=== PATIENT | female | born 1995 | race Caucasian/White ===

== ENCOUNTER 2018-11-28 08:56 | Emergency (ER) | payer OTHER ==
[2018-11-28 09:29] LABS: Absolute Lymphocytes (CBC) 1.5 K/uL (0.7-4.9); Absolute Monocytes 0.6 K/uL (0.1-1.3); Absolute Neutrophil 4.8 K/uL (1.8-8.0); Basophils % 0.3 % (0-1.3); Eosinophils % 3.6 % (0-4.4); Hematocrit 39.2 % (36.0-45.0); Lymphocytes % 20.6 % (15.3-44.8); MPV 10.3 fL (7.6-11.3); Monocytes % 7.9 % (3.3-12.3); RBC Red Blood Cell Count 4.48 M/uL (3.86-4.86)
[2018-11-28 09:31] LABS: Urine Blood NEGATIVE (NEG); Urine Glucose NEGATIVE (NEG); Urine Protein NEGATIVE (NEG); Urine Specific Gravity 1.025 (1.005-1.030)
[2018-11-28 10:07] LABS: BUN Blood Urea Nitrogen 10 mg/dL (7-18); Bicarbonate 25 mmol/L (21-32); Glucose Level 104 mg/dL (74-106); HCG, Quantitative 1489 mIU/mL (1-3); Potassium 3.8 mmol/L (3.5-5.1); Sodium Level 140 mmol/L (136-145)
--- NOTE | 2018-11-28 10:23 | RAD REPORT ---
EXAM DESCRIPTION: US - Transvaginal OB - 11/28/2018 9:48 am CLINICAL HISTORY: VAG BLEED PREG , vaginal bleeding. COMPARISON: 10/30/2018 FINDINGS: Transabdominal and transvaginal pelvic ultrasound was performed. A single gestational sac is seen within the uterus. Shape of the sac is irregular. Within the sac is a single pole with crown-rump length of 21 mm, correlating to estimated gestational age of 8 we eks 5 days. Inferiorly located subchorionic bleed is present measuring 12 mm. Despite prolonged sonographic interrogation, embryonic cardiac activity was not visualized. The placenta is not yet developed due to early gestational age. The maternal adnexa and ovaries are within normal limits. Normal Doppler blood flow was demonstrated to both ovaries. Fluid is present in the cervical canal. IMPRESSION: The findings are compatible with embryonic demise.
--- NOTE | 2018-11-28 10:44 | EDPHYS ---
Physician Documentation [facility] Name: Florida Griffith Age: 23 yrs Sex: Female : 1995 Arrival Date: 11/28/2018 Time: 08:58 Bed 6 Private MD: Javier Turpin P ED Physician Francois Ennis HPI: 11/28 09:08 This 23 yrs old Female presents to ER via Ambulatory with complaints of rn Vaginal Bleeding, + Preg <12wks. 09:08 The patient presents to the emergency department with vaginal bleeding, described as rn spotting. The estimated gestational age is 11 weeks. course: care: private OB physician, Leakage of Fluid: none appreciated, Ultrasound: the patient had an ultrasound, Risk/complications: no obvious risks or complications are appreciated. Previous pregnancies: in previous pregnancies patient has had. The patient has not experienced similar symptoms in the past. at 11 weeks with confirmed single IUP reports 2 days of spotting, no abd pain, no longer bleeding, has required rhogam twice before with other pregnancies.. 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 - Social history:: Smoking status: Patient/guardian denies using tobacco. - Ebola Screening: : Patient denies travel to an Ebola-affected area in the 21 days before illness onset. - Family history:: not pertinent. - Hospitalizations: : No recent hospitalization is reported. ROS: 09:08 Constitutional: Negative for fever, chills, and weight loss, Cardiovascular: Negative rn for chest pain, palpitations, and edema, Respiratory: Negative for shortness of breath, cough, wheezing, and pleuritic chest pain, Abdomen/GI: Negative for abdominal pain, nausea, vomiting, diarrhea, and constipation, : Negative for injury, bleeding, discharge, and swelling, MS/Extremity: Negative for injury and deformity, Skin: Negative for injury, rash, and discoloration, Neuro: Negative for headache, weakness, numbness, tingling, and seizure. Exam: 09:13 Constitutional: This is a well developed, well nourished patient who is awake, alert, rn appears anxious Head/Face: Normocephalic, atraumatic. Eyes: Pupils equal round and reactive to light, extra-ocular motions intact. Lids and lashes normal. Conjunctiva and sclera are non-icteric and not injected. Cornea within normal limits. Periorbital areas with no swelling, redness, or edema. ENT: MMM Abdomen/GI: soft, non-tender, no rebound Skin: Warm, dry MS/ Extremity: Pulses equal, no cyanosis. Neuro: Awake and alert, GCS 15, oriented to person, place, time, and situation. Cranial nerves II-XII grossly intact. Motor strength 5/5 in all extremities. Sensory grossly intact. Vital Signs: 09:12 BP 130 / 54; Pulse 84; Resp 18 S; Temp 97.3(TE); Pulse Ox 100% on R/A; Pain 0/10; aa5 10:00 BP 175 / 6; Pulse 65; Resp 17; Pulse Ox 100% on R/A; tw2 11:07 BP 113 / 56; Pulse 73; Resp 17; Pulse Ox 100% on R/A; tw2 MDM: 09:00 Patient medically screened. rn 10:40 Differential diagnosis: Data reviewed: vital signs, nurses notes, lab test result(s), rn radiologic studies, ultrasound, and as a result, I will discharge patient. Counseling: I had a detailed discussion with the patient and/or guardian regarding: the historical points, exam findings, and any diagnostic results supporting the discharge/admit diagnosis, lab results, radiology results, the need for outpatient follow up, to return to the emergency department if symptoms worsen or persist or if there are any questions or concerns that arise at home. 10:40 ED course: COnsulted with Dr. Turpin, regarding demise/missed , rn instructions given to me to tell patient unless something worsens, to arrive at his clinic Sunday morning NPO for likely D\T\C. . 10:43 ED course: Pt given rhogam. . rn 11/28 09:05 Order name: Quantitative Hcg; Complete Time: 10:12 rn 11/28 09:05 Order name: Abo/rh Typing rn 11/28 09:05 Order name: Basic Metabolic Panel; Complete Time: 10:12 rn 11/28 09:05 Order name: CBC with Diff; Complete Time: 10:01 rn 11/28 09:14 Order name: Urine Dipstick--Ancillary (enter results); Complete Time: 10:01 eb 11/28 09:14 Order name: Urine --Ancillary (enter results); Complete Time: 10:01 eb 11/28 09:39 Order name: Pelvis Complete EDMS 11/28 10:25 Order name: Rh Typing EDMS 11/28 10:25 Order name: Antibody Screen EDMS 11/28 10:25 Order name: Fetalscreen EDMS 11/28 10:25 Order name: Cord Rh type EDMS 11/28 10:25 Order name: Rhogam EDMS 11/28 09:05 Order name: Urine Test (obtain specimen); Complete Time: 09:11 rn 11/28 09:05 Order name: IV Saline Lock; Complete Time: 09:49 rn 11/28 09:05 Order name: Labs collected and sent; Complete Time: 09:49 rn 11/28 09:05 Order name: NPO; Complete Time: 09:08 rn 11/28 09:05 Order name: Urine Dipstick-Ancillary (obtain specimen); Complete Time: 09:11 rn 11/28 09:41 Order name: Transvaginal OB; Complete Time: 10:40 EDMS Administered Medications: 12:15 Drug: RhoGAM (Human) 300 mcg Route: IM; Site: right deltoid; aa5 12:40 Follow up: Response: No adverse reaction aa5 Disposition: 11/28/18 10:42 Discharged to Home. Impression: Missed , demise. - Condition is Stable. - Discharge Instructions: Miscarriage. - Medication Reconciliation Form, Thank You Letter, Antibiotic Education, Prescription Opioid Use form. - Follow up: Javier Turpin MD; When: 12/02/2018; Reason: Further diagnostic work-up, Recheck today's complaints, Re-evaluation by your physician. - Problem is new. - Symptoms are unchanged. Signatures: Dispatcher [employer] EDMS Francois Ennis MD MD rn Calderon, Audri, RN RN aa5 Teresita Martin RN RN tw2 Corrections: (The following items were deleted from the chart) 09:07 09:02 PMHx: None; avery Lisa 09: 09:01 Social history: Smoking status: Lisa Keshia 09:08 09:01 Immunization history: Adult Immunizations avery lance 09:13 09:08 Constitutional: Negative for fever, chills, and weight loss, rn rn 09:39 09:06 OB Limited+US.RAD.BRZ ordered. EDMS EDMS 12:42 10:42 11/28/2018 10:42 Discharged to Home. Impression: Missed ; demise. aa5 Condition is Stable. Forms are Medication Reconciliation Form, Thank You Letter, Antibiotic Education, Prescription Opioid Use. Follow up: Javier Turpin; When: 12/02/2018; Reason: Further diagnostic work-up, Recheck today's complaints, Re-evaluation by your physician. Problem is new. Symptoms are unchanged. rn
--- NOTE | 2018-11-28 10:44 | ER ---
Nurse's Notes [facility] Name: Florida Griffith Age: 23 yrs Sex: Female : 1995 Arrival Date: 11/28/2018 Time: 08:58 Bed 6 Private MD: Javier Turpin P Diagnosis: Missed ; demise Presentation: 11/28 09:00 Transition of care: patient was not received from another setting of care. Onset of tw2 symptoms was November 28, 2018. Risk Assessment: Do you want to hurt yourself or someone else? Patient reports no desire to harm self or others. Care prior to arrival: None. 09:00 Method Of Arrival: Ambulatory tw2 09:00 Presenting complaint: Patient states: "I started spotting last night but it stopped aa5 already". pt denies pain. Pt reports being 11 weeks . 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 09:00 Initial Sepsis Screen: Does the patient meet any 2 criteria? No. Patient's initial aa5 sepsis screen is negative. Does the patient have a suspected source of infection? No. Patient's initial sepsis screen is negative. 09:00 Acuity: VICTORIA 3 aa5 Triage Assessment: 09:09 General: Appears in no apparent distress. well groomed, Behavior is calm, cooperative, tw2 appropriate for age. Pain: Denies pain. 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 - Social history:: Smoking status: Patient/guardian denies using tobacco. - Ebola Screening: : Patient denies travel to an Ebola-affected area in the 21 days before illness onset. - Family history:: not pertinent. - Hospitalizations: : No recent hospitalization is reported. Screenin:00 Abuse screen: Denies threats or abuse. Nutritional screening: No deficits noted. tw2 Tuberculosis screening: No symptoms or risk factors identified. Fall Risk None identified. Assessment: 09:05 General: Appears comfortable, Behavior is calm, cooperative. Pain: Denies pain. Neuro: aa5 Level of Consciousness is awake, alert, obeys commands, Oriented to person, place, time, situation. Cardiovascular: Heart tones S1 S2 present Rhythm is regular. Respiratory: Airway is patent Respiratory effort is even, unlabored, Respiratory pattern is regular, symmetrical, Breath sounds are clear bilaterally. GI: Abdomen is round Bowel sounds present X 4 quads. Abd is soft and non tender X 4 quads. : Reports vaginal bleeding that is spotty, that has resolved. Denies burning with urination, inability to void. EENT: No signs and/or symptoms were reported regarding the EENT system. Derm: Skin is pink, warm \\T\\ dry. Musculoskeletal: Range of motion: intact in all extremities. 09:54 Reassessment: Patient is alert, oriented x 3, equal unlabored respirations, skin aa5 warm/dry/pink. Pt back from US. 10:50 Reassessment: Patient is alert, oriented x 3, equal unlabored respirations, skin aa5 warm/dry/pink. Awaiting RhoGAM from lab, contacted lab and they stated they will contact me when it's ready. Pt was notified of wait time. . 12:40 Reassessment: Patient is alert, oriented x 3, equal unlabored respirations, skin aa5 warm/dry/pink. Patient denies pain at this time. Vital Signs: 09:12 BP 130 / 54; Pulse 84; Resp 18 S; Temp 97.3(TE); Pulse Ox 100% on R/A; Pain 0/10; aa5 10:00 BP 175 / 6; Pulse 65; Resp 17; Pulse Ox 100% on R/A; tw2 11:07 BP 113 / 56; Pulse 73; Resp 17; Pulse Ox 100% on R/A; tw2 ED Course: 08:58 Patient arrived in ED. as 08:58 Javier Turpin MD is Private Physician. as 09:00 Francois Ennis MD is Attending Physician. rn 09:00 Bed in low position. Call light in reach. Pulse ox on. NIBP on. tw2 09:00 Arm band placed on. tw2 09:06 Niurka Vance, RAFA is Primary Nurse. aa5 09:07 Triage completed. aa5 09:12 No provider procedures requiring assistance completed. aa5 09:17 Urine collected: clean catch specimen, cloudy, anthony colored. jb1 09:20 Initial lab(s) drawn, by ED staff, sent to lab. Inserted saline lock: 22 gauge in left aa5 antecubital area, using aseptic technique. IV inserted by Teresita Martin RN. 09:40 Pelvis Complete In Process Unspecified. EDMS 09:47 Transvaginal OB In Process Unspecified. EDMS 10:42 Javier Turpin MD is Referral Physician. rn 11:04 Awaiting: Medication from Pharmacy PRIOR to discharge. tw2 12:40 IV discontinued, intact, bleeding controlled, No redness/swelling at site. Pressure aa5 dressing applied. Administered Medications: 12:15 Drug: RhoGAM (Human) 300 mcg Route: IM; Site: right deltoid; aa5 12:40 Follow up: Response: No adverse reaction aa5 Outcome: 10:42 Discharge ordered by MD. rn 12:40 Discharged to home ambulatory, with family. aa5 12:40 Condition: stable 12:40 Discharge instructions given to patient, Instructed on discharge instructions, follow up and referral plans. Demonstrated understanding of instructions, follow-up care. 12:42 Patient left the ED. aa5 Signatures: Dispatcher [employer] EDMS Fermín Lea jb1 Suma Burk Roman, MD MD rn Calderon, Audri, RN RN aa5 Teresita Martin RN RN Corrections: (The following items were deleted from the chart) 09:07 09:02 PMHx: None; tw tw 09:08 09:01 Social history: Smoking status: 09:08 09:01 Immunization history: Adult Immunizations 09:39 09:33 In radiology for OB Limited+US.RAD.BRZ. EDMS EDMS 09:50 09:20 Inserted saline lock: 20 gauge in right antecubital area, using aseptic aa5 technique. IV inserted by Teresita Martin RN aa5 09:56 09:20 Inserted saline lock: 22 gauge in right antecubital area, using aseptic aa5 technique. IV inserted by Teresita Martin RN aaKeshia
--- NOTE | 2018-11-28 11:02 | RAD REPORT ---
EXAM DESCRIPTION: US - Pelvis Complete - 11/28/2018 9:39 am CLINICAL HISTORY: VAG BLEED PREG , vaginal bleeding. COMPARISON: 10/30/2018 FINDINGS: Transabdominal and transvaginal pelvic ultrasound was performed. A single gestational sac is seen within the uterus. Shape of the sac is irregular. Within the sac is a single pole with crown-rump length of 21 mm , correlating to estimated gestational age of 8 w eeks 5 days . Inferiorly located subchorionic bleed is present measuring 12 mm. Despite prolonged sonographic interrogation, embryonic cardiac activity was not visualized. The placenta is not yet developed due to early gestational age. The maternal adnexa and ovaries are within normal limits. Normal Doppler blood flow was demonstrated to both ovaries. Fluid is present in the cervical canal. IMPRESSION: The findings are compatible with embryonic demise.
[2018-11-28 13:20] VITALS: TEMP 97.3; O2SAT 100
[2018-11-28 13:22] VITALS: BP 113/56
== END 2018-11-28 12:42 | disposition home or self-care (01) ==
LOC: ER 08:56
DX: O02.1 Missed abortion (principal); Z3A.11 11 weeks gestation of pregnancy; Z88.0 Allergy status to penicillin
CPT/HCPCS: 36415; 76817; 76856; 80048; 81003; 81025; 84702; 85025; 86850; 86900; 86901; 96372; 99284; J2790

== ENCOUNTER 2019-07-15 19:09 | Emergency (ER) | payer OTHER ==
--- OUTSIDE RECORDS SUMMARY | 2019-07-15 19:11 | XMS REPORT ---
:1995 Author Organization [facility] Address [address] [place] [address] Dr. Castañeda [address] [place] [id number] Care Team Providers Name Role Phone Unavailable Unavailable Unavailable Problems This patient has no known problems. Allergies, Adverse Reactions, Alerts This patient has no known allergies or adverse reactions. Medications This patient has no known medications.
--- NOTE | 2019-07-15 20:30 | ER ---
Nurse's Notes [facility] Name: Florida Griffith Age: 24 yrs Sex: Female : 1995 Arrival Date: 07/15/2019 Time: 19:12 Bed 23 Private MD: Diagnosis: Vaginal Bleeding Post procedure Presentation: 07/15 19:26 Presenting complaint: Patient states: Patient reports she is 18 weeks , reports ea she went to the OB because she was secreting mucus, OB placed silver nitrate, pt reports she had bright red blood tinged mucus coming out of her vagina today. Transition of care: patient was not received from another setting of care. Onset of symptoms was July 15, 2019. Risk Assessment: Do you want to hurt yourself or someone else? Patient reports no desire to harm self or others. Initial Sepsis Screen: Does the patient meet any 2 criteria? No. Patient's initial sepsis screen is negative. Does the patient have a suspected source of infection? No. Patient's initial sepsis screen is negative. Care prior to arrival: None. 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 - Social history:: Smoking status: Patient/guardian denies using tobacco. - Ebola Screening: : No symptoms or risks identified at this time. Screenin:29 Abuse screen: Denies threats or abuse. Nutritional screening: No deficits noted. ea Tuberculosis screening: No symptoms or risk factors identified. Fall Risk. Assessment: 19:31 General: Appears in no apparent distress. Behavior is calm, cooperative, appropriate ea for age. Pain: Denies pain. Neuro: Level of Consciousness is awake, alert, obeys commands, Oriented to person, place, time, situation. Cardiovascular: Patient's skin is warm and dry. Respiratory: Airway is patent Respiratory effort is even, unlabored, Respiratory pattern is regular, symmetrical. : Parent/caregiver report the patient having vaginal bleeding that is spotty. 20:26 Reassessment: Patient and/or family updated on plan of care and expected duration. Pain ea level reassessed. Patient is alert, oriented x 3, equal unlabored respirations, skin warm/dry/pink. 20:43 Reassessment: Patient and/or family updated on plan of care and expected duration. Pain ea level reassessed. Patient is alert, oriented x 3, equal unlabored respirations, skin warm/dry/pink. Discharge instruction given to patient, verbalized the understanding of instruction. Pt left ED ambulatory accompanied by family. Pt tolerating well. Vital Signs: 19:31 BP 165 / 90; Pulse 110; Resp 18; Temp 97.6; Pulse Ox 100% ; Weight 92.53 kg; Height 5 ea ft. 6 in. (167.64 cm); 20:00 BP 135 / 70; Pulse 80; Resp 18; Pulse Ox 100% on R/A; ea 19:31 Body Mass Index 32.93 (92.53 kg, 167.64 cm) ea Vitals: 20:23 Heart Tones 164. ea ED Course: 19:12 Patient arrived in ED. jg7 19:16 Santosh Echeverria PA is PHCP. jr8 19:16 Arnoldo Mckenzie MD is Attending Physician. jr8 19:25 Km Sanchez LVN is Primary Nurse. em 19:28 Triage completed. ea 19:29 Patient has correct armband on for positive identification. Bed in low position. Call ea light in reach. 19:29 Arm band placed on right wrist. Patient placed in an exam room, on a stretcher, on ea pulse oximetry. 20:10 Assist provider with pelvic exam: Set up pelvic tray. Performed by Arnoldo Mckenzie MD ea Patient tolerated well. 20:44 Patient did not have IV access during this emergency room visit. ea Administered Medications: No medications were administered Outcome: 20:28 Discharge ordered by . aurelia 20:43 Discharged to home ambulatory, with significant other. ea 20:43 Condition: stable 20:43 Discharge instructions given to patient, Instructed on discharge instructions, follow up and referral plans. Demonstrated understanding of instructions, follow-up care. 20:45 Patient left the ED. ea Signatures: Km Sanchez LVN LVN em Santosh Echeverria PA PA jr8 rSi Schwab RN RN Radha Fitzgerald jg7
--- NOTE | 2019-07-15 20:31 | EDPHYS ---
Physician Documentation [facility] Name: [place] Griffith Age: 24 yrs Sex: Female : 1995 Arrival Date: 07/15/2019 Time: 19:12 Bed 23 Private MD: ED Physician Arnoldo Mckenzie HPI: 07/15 20:18 This 24 yrs old Female presents to ER via Ambulatory with complaints of jr8 Vaginal Bleeding, + Preg >12wks. 20:18 The patient presents to the emergency department with vaginal bleeding, described as jr8 spotting. The estimated gestational age is 18 weeks. course: care: private OB physician, Leakage of Fluid: none appreciated, Ultrasound: the patient had an ultrasound, which was normal. Associated signs and symptoms: The patient has no apparent associated signs or symptoms. It is unknown whether or not the patient has had similar symptoms in the past. The patient has been recently seen by a physician:. Patient saw OB today for discharge. Had leaking gland per patient had had silver nitrate applied. Stated that later this evening had wiped and saw small amount of bright red blood that has since resolved . ESTIMATE CLERK: 20:18 2, Full Term 0, Premature 0, 1, Living 0 jr8 Historical: - Allergies: 19:30 PENICILLINS; ea - Home Meds: 19:30 Vitamin Oral [Active]; ea - PMHx: 19:30 PCOS; ea - PSHx: 19:30 None; ea - Immunization history:: Adult Immunizations up to date. - Social history:: Smoking status: Patient/guardian denies using tobacco. - Ebola Screening: : No symptoms or risks identified at this time. ROS: 20:18 Eyes: Negative for injury, pain, redness, and discharge, ENT: Negative for injury, jr8 pain, and discharge, Neck: Negative for injury, pain, and swelling, Cardiovascular: Negative for chest pain, palpitations, and edema, Respiratory: Negative for shortness of breath, cough, wheezing, and pleuritic chest pain, Abdomen/GI: Negative for abdominal pain, nausea, vomiting, diarrhea, and constipation, Back: Negative for injury and pain, MS/Extremity: Negative for injury and deformity, Skin: Negative for injury, rash, and discoloration, Neuro: Negative for headache, weakness, numbness, tingling, and seizure. 20:18 : Positive for vaginal bleeding. Exam: 20:18 Eyes: Pupils equal round and reactive to light, extra-ocular motions intact. Lids and jr8 lashes normal. Conjunctiva and sclera are non-icteric and not injected. Cornea within normal limits. Periorbital areas with no swelling, redness, or edema. ENT: Nares patent. No nasal discharge, no septal abnormalities noted. Tympanic membranes are normal and external auditory canals are clear. Oropharynx with no redness, swelling, or masses, exudates, or evidence of obstruction, uvula midline. Mucous membranes moist. Neck: Trachea midline, no thyromegaly or masses palpated, and no cervical lymphadenopathy. Supple, full range of motion without nuchal rigidity, or vertebral point tenderness. No Meningismus. Cardiovascular: Regular rate and rhythm with a normal S1 and S2. No gallops, murmurs, or rubs. Normal PMI, no JVD. No pulse deficits. Respiratory: Lungs have equal breath sounds bilaterally, clear to auscultation and percussion. No rales, rhonchi or wheezes noted. No increased work of breathing, no retractions or nasal flaring. Abdomen/GI: Soft, non-tender, with normal bowel sounds. No distension or tympany. No guarding or rebound. No evidence of tenderness throughout. Back: No spinal tenderness. No costovertebral tenderness. Full range of motion. Skin: Warm, dry with normal turgor. Normal color with no rashes, no lesions, and no evidence of cellulitis. MS/ Extremity: Pulses equal, no cyanosis. Neurovascular intact. Full, normal range of motion. Neuro: Awake and alert, GCS 15, oriented to person, place, time, and situation. Cranial nerves II-XII grossly intact. Motor strength 5/5 in all extremities. Sensory grossly intact. Cerebellar exam normal. Normal gait. 20:18 : Pelvic Exam: External exam: is normal, no appreciated Bartholin's cyst, no erythema, not excoriated, no evidence of foreign body, no lesions, no ulcerations, no warts seen, Speculum exam: os that is closed, nitrated area noted to vaginal wall. No bleeding to cervical os . Vital Signs: 19:31 BP 165 / 90; Pulse 110; Resp 18; Temp 97.6; Pulse Ox 100% ; Weight 92.53 kg; Height 5 ea ft. 6 in. (167.64 cm); 20:00 BP 135 / 70; Pulse 80; Resp 18; Pulse Ox 100% on R/A; ea 19:31 Body Mass Index 32.93 (92.53 kg, 167.64 cm) ea MDM: 19:16 Patient medically screened. jr8 20:18 Data reviewed: vital signs, nurses notes, and as a result, I will discharge patient. jr8 Data interpreted: Pulse oximetry: on room air is 100 %. Interpretation: normal. Counseling: I had a detailed discussion with the patient and/or guardian regarding: the historical points, exam findings, and any diagnostic results supporting the discharge/admit diagnosis, the need for outpatient follow up, an OB/Gyne specialist, to return to the emergency department if symptoms worsen or persist or if there are any questions or concerns that arise at home. ED course: FHT 160 and strong. No active vaginal or cervical bleeding noted. Patient without cramping or abdominal pain. Patient has US scheduled for this Sunday. Reassured patient that the bleeding today was more then likely from the nitrate procedure today. If it starts again to come back and will US sooner. Patient good with this . 07/15 19:31 Order name: Pelvic Exam Setup; Complete Time: 19:56 [facility] 07/15 20:09 Order name: FHT's; Complete Time: 20:24 jr8 Administered Medications: No medications were administered Disposition: 21:22 Co-signature as Attending Physician, Arnoldo Mckenzie MD I agree with the assessment and wa plan of care. Disposition: 07/15/19 20:28 Discharged to Home. Impression: Vaginal Bleeding Post procedure . - Condition is Stable. - Discharge Instructions: Vaginal Bleeding During , Second Trimester. - Medication Reconciliation Form, Thank You Letter, Antibiotic Education, Prescription Opioid Use form. - Follow up: Private Physician; When: 2 - 3 days; Reason: Recheck today's complaints, Continuance of care, Re-evaluation by your physician. - Problem is new. - Symptoms have improved. Signatures: Santosh Echeverria PA PA jr8 Sri Schwab RN RN ea Appiah, William, MD MD wa Corrections: (The following items were deleted from the chart) 20:45 20:28 07/15/2019 20:28 Discharged to Home. Impression: Vaginal Bleeding Post procedure ea . Condition is Stable. Forms are Medication Reconciliation Form, Thank You Letter, Antibiotic Education, Prescription Opioid Use. Follow up: Private Physician; When: 2 - 3 days; Reason: Recheck today's complaints, Continuance of care, Re-evaluation by your physician. Problem is new. Symptoms have improved. jr8
[2019-07-15 20:59] VITALS: TEMP 97.6; O2SAT 100
[2019-07-15 21:01] VITALS: BP 135/70
== END 2019-07-15 20:45 | disposition home or self-care (01) ==
LOC: ER 19:09
DX: O46.8X2 Other antepartum hemorrhage, second trimester (principal); Z98.890 Other specified postprocedural states; Z3A.18 18 weeks gestation of pregnancy; Z88.0 Allergy status to penicillin
CPT/HCPCS: 99283